=== PATIENT | female | born 1965 | race Caucasian/White ===

== ENCOUNTER → 2020-11-05 | Outpatient (CLI) | payer OTHER ==
[2014-01-06 08:00] VITALS: BP 117/74
[~2020-11-05] MED LIST: ENOX120D SQ; LEVO-101 PO; WARF7.5T48 PO
--- NOTE | 2020-11-05 10:05 | RAD ---
2 views the right knee without comparison for right knee pain. FINDINGS: There is no fracture, dislocation, or acute osseous abnormality. Joints soft tissues are gr ossly unremarkable. No significant degenerative changes. IMPRESSION: 1. No acute osseous abnormality. Electronically signed by: Michael Serrano MD (11/05/2020 10:02 AM) [id number]
== END ==
LOC: PF 08:01
PROVIDERS: ATTEND Surgery
DX: J44.9 Chronic obstructive pulmonary disease, unspecified (principal); M25.561 Pain in right knee
CPT/HCPCS: 73560; 94010